=== PATIENT | male | born 1980 | race Caucasian/White ===

== ENCOUNTER 2017-07-01 21:19 | Emergency (ER) | payer OTHER ==
--- NOTE | 2017-07-01 21:22 | EDPHY ---
HPI/HX/ROS/PE/MDM Narrative: CHIEF COMPLAINT: Palpitations, dyspnea after marijuana edible. HPI: The patient is a 37 y/o male arriving via EMS complaining of acute onset palpitations and dyspnea 30 minutes after ingesting a marijuana edible at 20:00 tonight, a little over an hour ago. He has had milder versions of similar symptoms previously this week after using edibles. Tonight he felt near syncopal in addition to palpitations and dyspnea. Most of these symptoms resolved upon EMS arrival. He denies alcohol or other ingestions. REVIEW OF SYSTEMS: Aside from elements discussed in the HPI, a comprehensive 10-point review of systems was reviewed and is negative. PMH: Congenital amputations. Denies history of heart disease or blood clot. SOCIAL HISTORY: Lives in [place]. Employed. PHYSICAL EXAM: General:Patient is alert, in no acute distress. ENT:Eyes are normal to inspection. ENT inspection normal. Neck: Normal inspection. Full range of motion. Respiratory:No respiratory distress. Breath sounds normal bilaterally. Cardiovascular: Tachycardic rate and rhythm. Strong peripheral pulses. Normal cap refill. Abdomen:The abdomen is nontender to palpation. There are no peritoneal signs. Back: Normal to inspection. No tenderness to palpation. Skin: Normal color. No rash. Warm and dry. 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 Full range of motion. Neuro: Oriented x3. Normal motor function. Normal sensory function. ED Course: This is a 37 y/o male with congenital amputations presenting for evaluation of palpitations and dyspnea 30 minutes after using edibles. He also reports a fever for the last 21 days that his PCP is following for possible mono. He is nearly asymptomatic upon arrival here. He is tachycardic at 130. Plan for IV, labs, EKG. 1L IV NS administered. The 12 lead EKG was interpreted by myself. Sinus tachycardia. See hard copy and/ or "tracemaster" electronic copy for interpretation. Chest x-ray: airways disease, no pneumonia. MDM: This patient presents with tachycardia, confusion and dyspnea after ingesting a marijuana edible. We performed an extensive workup which is negative for PE, ACS, PNA, sepsis or electrolyte abnormality. After observation in the ED, his symptoms have resolved, he is no longer tachycardic and his mental status is back to normal. I think his symptoms are likely all explainable by marijuana ingestion. He is comfortable with plan for discharge home. - Data Points Imaging Results: Imaging Impressions Chest X-Ray 07/01/17 21:59 Impression: Suspect airways disease with no superimposed pneumonia identified. Imaging: I viewed and interpreted images myself Laboratory Results: Laboratory Results 07/01/17 21:36 07/01/17 21:36 07/01/17 07/01/17 07/01/17 21:36 21:36 21:36 WBC RBC Hgb Hct MCV MCH MCHC RDW Plt Count MPV Neut % (Auto) Lymph % (Auto) [place] % (Auto) Eos % (Auto) Baso % (Auto) Nucleat RBC Rel Count Absolute Neuts (auto) Absolute Lymphs (auto) Absolute Monos (auto) Absolute Eos (auto) Absolute Basos (auto) Absolute Nucleated RBC Immature Gran % Immature Gran # D-Dimer < 0.27 ug/mLFEU ug/mLFEU (0.00-0.50) Sodium 140 mEq/L mEq/L (135-145) Potassium 3.8 mEq/L mEq/L (3.5-5.2) Chloride 104 mEq/L mEq/L (97-110) Carbon Dioxide 19 mEq/l L mEq/l (22-31) Anion Gap 17 mEq/L H mEq/L (8-16) BUN 15 mg/dL mg/dL (7-23) Creatinine 1.0 mg/dL mg/dL (0.7-1.3) Estimated GFR > 60 Glucose 121 mg/dL H mg/dL (70-100) Calcium 10.0 mg/dL mg/dL (8.5-10.4) Total Bilirubin 0.7 mg/dL mg/dL (0.1-1.4) Conjugated Bilirubin 0.5 mg/dL mg/dL (0.0-0.5) Unconjugated Bilirubin 0.2 mg/dL mg/dL (0.0-1.1) AST 28 IU/L IU/L (17-59) ALT 65 IU/L IU/L (21-72) Alkaline Phosphatase 62 IU/L IU/L (38-126) Troponin I < 0.012 ng/mL ng/mL (0.000-0.034) Total Protein 7.0 g/dL g/dL (6.3-8.2) Albumin 4.2 g/dL g/dL (3.5-5.0) 07/01/17 21:36 WBC 11.72 10^3/uL H 10^3/uL (3.80-9.50) RBC 4.94 10^6/uL 10^6/uL (4.40-6.38) Hgb 15.5 g/dL g/dL (13.7-17.5) Hct 43.8 % % (40.0-51.0) MCV 88.7 fL fL (81.5-99.8) MCH 31.4 pg pg (27.9-34.1) MCHC 35.4 g/dL g/dL (32.4-36.7) RDW 13.1 % % (11.5-15.2) Plt Count 531 10^3/uL H 10^3/uL (150-400) MPV 10.6 fL fL (8.7-11.7) Neut % (Auto) 51.9 % % (39.3-74.2) Lymph % (Auto) 36.9 % % (15.0-45.0) [place] % (Auto) 7.6 % % (4.5-13.0) Eos % (Auto) 2.6 % % (0.6-7.6) Baso % (Auto) 0.6 % % (0.3-1.7) Nucleat RBC Rel Count 0.0 % % (0.0-0.2) Absolute Neuts (auto) 6.08 10^3/uL 10^3/uL (1.70-6.50) Absolute Lymphs (auto) 4.32 10^3/uL H 10^3/uL (1.00-3.00) Absolute Monos (auto) 0.89 10^3/uL H 10^3/uL (0.30-0.80) Absolute Eos (auto) 0.31 10^3/uL 10^3/uL (0.03-0.40) Absolute Basos (auto) 0.07 10^3/uL 10^3/uL (0.02-0.10) Absolute Nucleated RBC 0.00 10^3/uL 10^3/uL (0-0.01) Immature Gran % 0.4 % % (0.0-1.1) Immature Gran # 0.05 10^3/uL 10^3/uL (0.00-0.10) D-Dimer Sodium Potassium Chloride Carbon Dioxide Anion Gap BUN Creatinine Estimated GFR Glucose Calcium Total Bilirubin Conjugated Bilirubin Unconjugated Bilirubin AST ALT Alkaline Phosphatase Troponin I Total Protein Albumin Medications Given: Discontinued Medications Sodium Chloride (Ns) 1,000 mls @ 0 mls/hr IV EDNOW ONE; Wide Open PRN Reason: Protocol Stop: 07/01/17 21:25 Last Admin: 07/01/17 21:45 Dose: 1,000 mls General Initial Vital Signs: Initial Vital Signs Temperature (C) 37.2 C 07/01/17 21:20 Heart Rate 130 H 07/01/17 21:20 Respiratory Rate 18 07/01/17 21:20 Blood Pressure 149/94 H 07/01/17 21:20 O2 Sat (%) 97 07/01/17 21:20 O2 Delivery Mode Room Air Allergies/Adverse Reactions: No Known Allergies Allergy (Unverified 07/01/17 21:47) Home Medications: Medication Instructions Recorded Adderall 10 mg Tablet 07/01/17 Doxycycline Hyclate 07/01/17 Prilosec 07/01/17 Proscar 5 MG (*) 07/01/17 Departure - Departure Disposition: Home, Routine, Self-Care Clinical Impression: Palpitations Dyspnea Qualifiers: Dyspnea type: shortness of breath Qualified Code(s): R06.02 - Shortness of breath Condition: Good Instructions: Heart Palpitations (ED), Shortness of Breath (ED) Additional Instructions: Avoid marijuana edibles. Follow up with your primary care provider and manager cancer in the next 2-3 days. Return to the ED for worsening of condition. Referrals: Jeimy Marrufo MD [[facility] [place] Primary Care Provider] - As per Instructions Huy Latif MD [Medical Doctor] - As per Instructions Report Scribed for: Tomas Arellano Report Scribed by: Sherine Chacko Date of Report: 07/01/17 Time of Report: 21:22 Physician Review and Approval Statement: Portions of this note were transcribed by an ED scribe. I personally performed the history, physical exam, and medical decision making; and confirm the accuracy of the information in the transcribed note.
[2017-07-01] MEDS ORDERED: NS 1,000 ML IV ONE (21:24)
--- NOTE | 2017-07-01 21:38 | CPEKG ---
Heart Rate: 123 RR Interval: 488 P-R Interval: 144 QRSD Interval: 70 QT Interval: 304 QTC Interval: 435 P [place]: 67 QRS [place]: 0 T Wave [place]: 99 EKG Severity - ABNORMAL ECG - EKG Impression: SINUS TACHYCARDIA EKG Impression: NONSPECIFIC T ABNORMALITIES, LATERAL LEADS Electronically Signed By: Pavithra Muñoz 02-Jul-2017 23:06:01
[2017-07-01 21:48] LABS: PLATELET COUNT 531 10^3/uL (150-400)
[2017-07-01 23:13] VITALS: O2SAT 95
[2017-07-02 00:37] VITALS: BP 124/81; PULSE 100; RESP 17; TEMP 98.8
== END 2017-07-02 00:36 | disposition home or self-care (01) ==
PROC: 3E0337Z Introduction of Electrolytic and Water Balance Substance into Peripheral Vein, Percutaneous Approach (ICD-10-PCS; principal; 2017-07-01)
DX: R00.2 Palpitations (principal); R06.02 Shortness of breath; E86.9 Volume depletion, unspecified